=== PATIENT | male | born 1950 | race Caucasian/White ===

== ENCOUNTER 2020-12-07 06:06 | Outpatient (REF) | payer BC, SELFPAY | END 2020-12-07 06:07 | disposition home or self-care (01) | LOC: HO.LAB 06:06 | PROVIDERS: PCP Internal Medicine; Visit Provider Internal Medicine | DX: Z20.822 Contact with and (suspected) exposure to COVID-19 (principal) | CPT/HCPCS: 36415; C9803; U0003 ==

== ENCOUNTER 2020-12-16 10:53 | Outpatient (REF) | payer BC, SELFPAY | END 2020-12-16 10:54 | disposition home or self-care (01) | LOC: HO.LAB 10:53 | PROVIDERS: Visit Provider Internal Medicine | DX: Z20.822 Contact with and (suspected) exposure to COVID-19 (principal) | CPT/HCPCS: 36415; C9803; U0003; U0005 ==

== ENCOUNTER 2021-05-04 12:37 | Emergency (ER) | payer BC, SELFPAY ==
--- NOTE | 2021-05-04 | ECG_ITS ---
Test Reason : CHEST PAIN Blood Pressure : / mmHG Vent. Rate : 058 BPM Atrial Rate : 058 BPM P-R Int : 148 ms QRS Dur : 082 ms QT Int : 398 ms P-R-T Axes : 057 005 037 degrees QTc Int : 390 ms Sinus bradycardia Otherwise normal ECG When compared with ECG of 07-NOV-2008 14:59, No significant change was found Referred By: Asya Lubin Electronically Signed By:Ishan Reid
--- NOTE | ~2021-05-04 | XR_ITS ---
EXAMINATION: XR CHEST CLINICAL INFORMATION: Chest pain COMPARISON: None TECHNIQUE: Portable upright AP view of the chest was obtained. FINDINGS: The lungs are clear. The vascularity is normal. There is no pneumothorax, pleural reaction, airspace opacity, or effusion. The heart is normal in size. The hilar and mediastinal contours are normal. There are mild multilevel degenerative changes thoracic spine. XR/XR chest 1V IMPRESSION: Unremarkable examination.
[2021-05-04 12:43] VITALS: BP 137/79; BP 138/79; PULSE 65; PULSE 72; RESP 19; TEMP 37.1; O2SAT 100; O2SAT 98; BMI 22.7
[2021-05-04 13:44] LABS: MANUAL DIFF FLAG NO
[2021-05-04 13:45] LABS: Basophils Percent Auto 0.4 % (0-2); Eosinophils Absolute Auto 0.4 X10*3/uL (0.0-0.4); Eosinophils Percent Auto 6.8 % (0-4); Hemoglobin 12.4 g/dl (14.0-18.0); Imm Gran Abs Auto 0.01 X10*3/uL (0.00-0.03); Imm Gran Pct Auto 0.2 % (0.0-0.4); Lymphocytes Absolute Auto 1.4 X10*3/uL (1.2-4.9); Lymphocytes Percent Auto 24.7 % (20-40); Mean Corpuscular HGB Conc 33.5 g/dl (31.0-36.0); Mean Corpuscular Hemoglobin 30.7 pg (27.0-33.0); Mean Corpuscular Volume 91.6 fL (80-98); Mean Platelet Volume 9.2 fL (9.4-12.4); Monocytes Absolute Auto 0.5 X10*3/uL (0.1-1.2); Monocytes Percent Auto 8.9 % (2-11); Neutrophils Absolute Auto 3.3 X10*3/uL (2.0-8.3); Platelet Count 227 X10*3/uL (160-400); Red Blood Count 4.04 X10*6/uL (4.60-5.80); Red Cell Distribution Width 13.1 % (11.0-16.0); White Blood Count 5.6 X10*3/uL (4.8-10.8)
[2021-05-04 13:55] LABS: INTERNATIONAL NORM RATIO 1.1 (0.9-1.1); Prothrombin Time 12.9 SEC (10.8-13.0)
[2021-05-04 13:57] LABS: Partial Thromboplastin Time 31.1 SEC (24.1-38.0)
--- NOTE | 2021-05-04 14:07 | ED_ITS ---
HPI - Chest Pain General Chief Complaint: Chest Pain <AJ Bishop Last Filed: 05/04/21 17:29> Stated Complaint: CHEST PAIN <AJ Bishop Last Filed: 05/04/21 17:29> Time Seen by Provider: 05/04/21 13:20 <AJ Bishop Last Filed: 05/04/21 17:29> Source: patient and EMS <AJ Bishop Last Filed: 05/04/21 17:29> Mode of arrival: EMS <AJ Bishop Last Filed: 05/04/21 17:29> History of Present Illness HPI narrative: 70-year-old male with no significant PMHx presenting to the ED complaining of episode of sharp left-sided chest pain that woke him up from sleep last night around 2-3AM lasting a few seconds, and then another episode around 12 noon lasting about 5 minutes with radiation down left arm. Denies chest pain at present. Denies SOB, numbness, tingling, LE edema, cough, fever, nausea/vo miting, abdominal pain. Patient reports cigarette smoking about 1 pack every other day <AJ Bishop Last Filed: 05/04/21 17:29> MD complaint: chest pain <AJ Bishop Last Filed: 05/04/21 17:29> Related Data Allergies/Adverse Reactions: Allergies Allergy/AdvReac Type Severity Reaction Status Date / Time No Known Allergies Allergy Unverified 07/29/20 15:38 <AJ Bishop Last Filed: 05/04/21 17:29> Review of Systems Review of Systems: Constitutional: o Fever, No Chills, No Fatigue, No Malaise Cardiovascular: + Chest Pain, No SOB, No Edema, No Palpitations Respiratory: No Cough, No Dyspnea Gastrointestinal: No Nausea, No Abdominal pain Genitourinary: No Dysuria, No Urinary Frequency, No Hematuria Musculoskeletal: No joint pain, No Myalgias, No Joint Swelling Skin: No Skin Lesions, No rash Neuro: No Weakness, No Numbness, No Paresthesias, No Dizziness, No Headache <AJ Bishop Last Filed: 05/04/21 17:29> Yes all other systems are reviewed and are negative <AJ Bishop Last Filed: 05/04/21 17:29> [facility] Past Medical History Attestation statement: The following information was validated with the patient. <AJ Bishop - Last Filed: 05/04/21 17:29> Medical History: Medical History (Updated 05/05/21 @ 00:01 by Bhavana Brown) No known health problems <AJ Bishop - Last Filed: 05/04/21 17:29> Social History Social History: Social History Patient Tobacco Use Status: Current everyday Tobacco user Use of substances other than those prescribed or required for medical reasons: No Advance Directives: No Advance Directives Information Provided: Yes <AJ Bishop - Last Filed: 05/04/21 17:29> Physical Exam Vital Signs: Vital Signs: Last Vital Signs Temp 98.9 F 05/04/21 16:10 Pulse 55 05/04/21 16:10 Resp 11 L 05/04/21 16:10 BP 124/69 05/04/21 16:10 Pulse Ox 100 05/04/21 16:10 Body Mass Index 22.7 <AJ Bishop - Last Filed: 05/04/21 17:29> Vital Signs: Last Vital Signs Temp 98.9 F 05/04/21 16:10 Pulse 55 05/04/21 16:10 Resp 11 L 05/04/21 16:10 BP 124/69 05/04/21 16:10 Pulse Ox 100 05/04/21 16:10 Body Mass Index 22.7 <Tyler Nichols MD - Last Filed: 06/06/21 20:32> Const: General: cooperative, healthy appearing and no acute distress <AJ Bishop - Last Filed: 05/04/21 17:29> Orientation/consciousness: patient oriented x3 <AJ Bishop - Last Filed: 05/04/21 17:29> Limitations: no limitations <AJ Bishop - Last Filed: 05/04/21 17:29> HENMT: Head: Yes normal to inspection <AJ Bishop - Last Filed: 05/04/21 17:29> Ears: hearing grossly normal bilaterally <AJ Bishop - Last Filed: 05/04/21 17:29> General nose exam: Normal external nose present <Asya Amee ID - Last Filed: 05/04/21 17:29> Face and sinus: Yes normal facial exam <Asyaroel Lubin PA - Last Filed: 05/04/21 17:29> Eyes: General: appearance normal, both eyes and all related structures <Asya Amee PA - Last Filed: 05/04/21 17:29> EOM: EOMs intact bilaterally <Asyaroel Lubin ID - Last Filed: 05/04/21 17:29> Neck: Neck: Yes normal visual inspection and Yes no meningeal signs <Asyaroel Lubin ID - Last Filed: 05/04/21 17:29> Resp: Effort & Inspection: normal respiratory effort <Asyaroel Lubin ID - Last Filed: 05/04/21 17:29> Auscultation: clear to auscultation bilaterally, no rales and no wheezes <Asyaroel Lubin ID - Last Filed: 05/04/21 17:29> Cardio: Rate: regular rate <Asya Lubin ID - Last Filed: 05/04/21 17:29> Heart sounds: S1 normal heart sound present and S2 normal heart sound present <Asyaroel Lubin ID - Last Filed: 05/04/21 17:29> GI: Inspection: Yes normal to inspection <Asya Lubin ID - Last Filed: 05/04/21 17:29> Palpation (GI): Soft to palpation, nontender, no guarding and not rigid <Asya Lubin ID - Last Filed: 05/04/21 17:29> Skin: Rashes: no rashes <Asya Lubin ID - Last Filed: 05/04/21 17:29> Wounds: no wounds <Asya Lubin ID - Last Filed: 05/04/21 17:29> Neuro: General: patient oriented x3 and no meningeal signs <Asya Lubin ID - Last Filed: 05/04/21 17:29> Extrem: General: Yes normal to inspection, Yes no pedal edema and Yes no calf tenderness <Asya Lubin PA - Last Filed: 05/04/21 17:29> Course Course Course Narrative: -no leukocytosis, H&H stable, initial troponin 3.6 > will obtain 3 hour repeat XR chest 1V IMPRESSION: Unremarkable examination. -1727--repeat troponin without 50% increase, [place] unlikely <AJ Bishop ast Filed: 05/04/21 17:29> I have reviewed the chart <Tyler Nichols MD - Last Filed: 06/06/21 20:32> MDM - Chest Pain MDM Narrative Medical decision making narrative: 70-year-old male with no significant PMHx presenting to the ED complaining of episode of sharp left-sided chest pain that woke him up from sleep last night around 2-3AM lasting a few seconds, and then another episode around 12 noon lasting about 5 minutes with radiation down left arm. On exam VSS, NAD/well- appearing, physical exam as above. Asymptomatic at present. Concern for ACS. Symptoms atypical for PE or pneumonia. Low concern for CHF. Plan: EKG, labs including troponin x2, CXR, reassess <AJ Bishop - Last Filed: 05/04/21 17:29> Medical Records Data Attestation: I reviewed the patient's medical records. <AJ Bishop - Last Filed: 05/04/21 17:29> Lab Data Attestation: I reviewed the patient's lab results. <AJ Bishop - Last Filed: 05/04/21 17:29> Result diagrams: : 05/04/21 13:35 05/04/21 13:35 <AJ Bishop - Last Filed: 05/04/21 17:29> Labs: Lab Results 05/04/21 05/04/21 05/04/21 Range/Units 13:35 13:35 13:35 WBC 5.6 (4.8-10.8) X10*3/uL RBC 4.04 L (4.60-5.80) X10*6/uL Hgb 12.4 L (14.0-18.0) g/dl Hct 37.0 L (42-52) % MCV 91.6 (80-98) fL MCH 30.7 (27.0-33.0) pg MCHC 33.5 (31.0-36.0) g/dl RDW 13.1 (11.0-16.0) % Plt Count 227 (160-400) X10*3/uL MPV 9.2 L (9.4-12.4) fL Immature Gran % (Auto) 0.2 (0.0-0.4) % Neut % (Auto) 59.0 (45-73) % Lymph % (Auto) 24.7 (20-40) % [place] % (Auto) 8.9 (2-11) % Eos % (Auto) 6.8 H (0-4) % Baso % (Auto) 0.4 (0-2) % Lymph # (Auto) 1.4 (1.2-4.9) X10*3/uL [place] # (Auto) 0.5 (0.1-1.2) X10*3/uL Eos # (Auto) 0.4 (0.0-0.4) X10*3/uL Baso # (Auto) 0.0 (0.0-0.2) X10*3/uL Abs Immat Gran (auto) 0.01 (0.00-0.03) X10*3/uL Absolute Neuts (auto) 3.3 (2.0-8.3) X10*3/uL Absolute Nucleated RBC 0.000 (0.0-0.012) X10*3/uL Nucleated RBC % (auto) 0.0 (0.0-0.2) /100WBC PT 12.9 (10.8-13.0) SEC INR 1.1 (0.9-1.1) APTT 31.1 (24.1-38.0) SEC Sodium 141 (135-145) mmol/L Potassium 4.3 (3.3-5.1) mmol/L Chloride 107 (96-108) mmol/L Carbon Dioxide 31 H (22-29) mmol/L Anion Gap 7 L (12-20) BUN 12 (9-16) mg/dL Creatinine 0.80 (0.5-1.4) mg/dL Estim Creat Clear Calc 82.2 Estimated GFR > 60 Random Glucose 89 (60-115) mg/dL Calcium 9.4 (8.4-10.2) mg/dL Magnesium 1.8 (1.6-2.6) mg/dL Total Bilirubin 0.4 (0.0-1.0) mg/dL Direct Bilirubin 0.2 (0.0-0.5) mg/dL AST 15 (5-37) U/L ALT 7 (0-40) U/L Alkaline Phosphatase 63 (39-117) U/L Troponin I High Sens (<3.5-35.0) ng/L B-Natriuretic Peptide (<100) pg/mL Total Protein 6.8 (6.5-8.0) g/dL Albumin 4.1 (3.5-5.0) g/dL 05/04/21 05/04/21 05/04/21 Range/Units 13:35 13:35 16:28 WBC (4.8-10.8) X10*3/uL RBC (4.60-5.80) X10*6/uL Hgb (14.0-18.0) g/dl Hct (42-52) % MCV (80-98) fL MCH (27.0-33.0) pg MCHC (31.0-36.0) g/dl RDW (11.0-16.0) % Plt Count (160-400) X10*3/uL MPV (9.4-12.4) fL Immature Gran % (Auto) (0.0-0.4) % Neut % (Auto) (45-73) % Lymph % (Auto) (20-40) % [place] % (Auto) (2-11) % Eos % (Auto) (0-4) % Baso % (Auto) (0-2) % Lymph # (Auto) (1.2-4.9) X10*3/uL [place] # (Auto) (0.1-1.2) X10*3/uL Eos # (Auto) (0.0-0.4) X10*3/uL Baso # (Auto) (0.0-0.2) X10*3/uL Abs Immat Gran (auto) (0.00-0.03) X10*3/uL Absolute Neuts (auto) (2.0-8.3) X10*3/uL Absolute Nucleated RBC (0.0-0.012) X10*3/uL Nucleated RBC % (auto) (0.0-0.2) /100WBC PT (10.8-13.0) SEC INR (0.9-1.1) APTT (24.1-38.0) SEC Sodium (135-145) mmol/L Potassium (3.3-5.1) mmol/L Chloride (96-108) mmol/L Carbon Dioxide (22-29) mmol/L Anion Gap (12-20) BUN (9-16) mg/dL Creatinine (0.5-1.4) mg/dL Estim Creat Clear Calc Estimated GFR Random Glucose (60-115) mg/dL Calcium (8.4-10.2) mg/dL Magnesium (1.6-2.6) mg/dL Total Bilirubin (0.0-1.0) mg/dL Direct Bilirubin (0.0-0.5) mg/dL AST (5-37) U/L ALT (0-40) U/L Alkaline Phosphatase (39-117) U/L Troponin I High Sens 3.6 4.4 (<3.5-35.0) ng/L B-Natriuretic Peptide 46 (<100) pg/mL Total Protein (6.5-8.0) g/dL Albumin (3.5-5.0) g/dL <AJ Bishop - Last Filed: 05/04/21 17:29> Lab Results 05/04/21 05/04/21 05/04/21 Range/Units 13:35 13:35 13:35 WBC 5.6 (4.8-10.8) X10*3/uL RBC 4.04 L (4.60-5.80) X10*6/uL Hgb 12.4 L (14.0-18.0) g/dl Hct 37.0 L (42-52) % MCV 91.6 (80-98) fL MCH 30.7 (27.0-33.0) pg MCHC 33.5 (31.0-36.0) g/dl RDW 13.1 (11.0-16.0) % Plt Count 227 (160-400) X10*3/uL MPV 9.2 L (9.4-12.4) fL Immature Gran % (Auto) 0.2 (0.0-0.4) % Neut % (Auto) 59.0 (45-73) % Lymph % (Auto) 24.7 (20-40) % [place] % (Auto) 8.9 (2-11) % Eos % (Auto) 6.8 H (0-4) % Baso % (Auto) 0.4 (0-2) % Lymph # (Auto) 1.4 (1.2-4.9) X10*3/uL [place] # (Auto) 0.5 (0.1-1.2) X10*3/uL Eos # (Auto) 0.4 (0.0-0.4) X10*3/uL Baso # (Auto) 0.0 (0.0-0.2) X10*3/uL Abs Immat Gran (auto) 0.01 (0.00-0.03) X10*3/uL Absolute Neuts (auto) 3.3 (2.0-8.3) X10*3/uL Absolute Nucleated RBC 0.000 (0.0-0.012) X10*3/uL Nucleated RBC % (auto) 0.0 (0.0-0.2) /100WBC PT 12.9 (10.8-13.0) SEC INR 1.1 (0.9-1.1) APTT 31.1 (24.1-38.0) SEC Sodium 141 (135-145) mmol/L Potassium 4.3 (3.3-5.1) mmol/L Chloride 107 (96-108) mmol/L Carbon Dioxide 31 H (22-29) mmol/L Anion Gap 7 L (12-20) BUN 12 (9-16) mg/dL Creatinine 0.80 (0.5-1.4) mg/dL Estim Creat Clear Calc 82.2 Estimated GFR > 60 Random Glucose 89 (60-115) mg/dL Calcium 9.4 (8.4-10.2) mg/dL Magnesium 1.8 (1.6-2.6) mg/dL Total Bilirubin 0.4 (0.0-1.0) mg/dL Direct Bilirubin 0.2 (0.0-0.5) mg/dL AST 15 (5-37) U/L ALT 7 (0-40) U/L Alkaline Phosphatase 63 (39-117) U/L Troponin I High Sens (<3.5-35.0) ng/L B-Natriuretic Peptide (<100) pg/mL Total Protein 6.8 (6.5-8.0) g/dL Albumin 4.1 (3.5-5.0) g/dL 05/04/21 05/04/21 05/04/21 Range/Units 13:35 13:35 16:28 WBC (4.8-10.8) X10*3/uL RBC (4.60-5.80) X10*6/uL Hgb (14.0-18.0) g/dl Hct (42-52) % MCV (80-98) fL MCH (27.0-33.0) pg MCHC (31.0-36.0) g/dl RDW (11.0-16.0) % Plt Count (160-400) X10*3/uL MPV (9.4-12.4) fL Immature Gran % (Auto) (0.0-0.4) % Neut % (Auto) (45-73) % Lymph % (Auto) (20-40) % [place] % (Auto) (2-11) % Eos % (Auto) (0-4) % Baso % (Auto) (0-2) % Lymph # (Auto) (1.2-4.9) X10*3/uL [place] # (Auto) (0.1-1.2) X10*3/uL Eos # (Auto) (0.0-0.4) X10*3/uL Baso # (Auto) (0.0-0.2) X10*3/uL Abs Immat Gran (auto) (0.00-0.03) X10*3/uL Absolute Neuts (auto) (2.0-8.3) X10*3/uL Absolute Nucleated RBC (0.0-0.012) X10*3/uL Nucleated RBC % (auto) (0.0-0.2) /100WBC PT (10.8-13.0) SEC INR (0.9-1.1) APTT (24.1-38.0) SEC Sodium (135-145) mmol/L Potassium (3.3-5.1) mmol/L Chloride (96-108) mmol/L Carbon Dioxide (22-29) mmol/L Anion Gap (12-20) BUN (9-16) mg/dL Creatinine (0.5-1.4) mg/dL Estim Creat Clear Calc Estimated GFR Random Glucose (60-115) mg/dL Calcium (8.4-10.2) mg/dL Magnesium (1.6-2.6) mg/dL Total Bilirubin (0.0-1.0) mg/dL Direct Bilirubin (0.0-0.5) mg/dL AST (5-37) U/L ALT (0-40) U/L Alkaline Phosphatase (39-117) U/L Troponin I High Sens 3.6 4.4 (<3.5-35.0) ng/L B-Natriuretic Peptide 46 (<100) pg/mL Total Protein (6.5-8.0) g/dL Albumin (3.5-5.0) g/dL <Tyler Nichols MD - Last Filed: 06/06/21 20:32> ECG Data ECG #1: Attestation: I personally reviewed and interpreted this ECG as follows: <AJ Bishop - Last Filed: 05/04/21 17:29> ECG interpretation date: 05/04/21 <AJ Bishop - Last Filed: 05/04/21 17:29> Prior ECG tracings: available for review <AJ Bishop - Last Filed: 05/04/21 17:29> Interpretation: EKG sinus bradycardia with a rate of 58. Nonischemic-no STEMI. 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
[2021-05-04 14:14] LABS: B Type Natriuretic Peptide 46 pg/mL (<100); Troponin-I High Sensitivity 3.6 ng/L (<3.5-35.0)
[2021-05-04 14:17] LABS: Alanine Aminotransferase 7 U/L (0-40); Albumin Level 4.1 g/dL (3.5-5.0); Alkaline Phosphatase 63 U/L (39-117); Anion Gap 7 (12-20); Aspartate Amino Transferase 15 U/L (5-37); Bilirubin Direct 0.2 mg/dL (0.0-0.5); Bilirubin Total 0.4 mg/dL (0.0-1.0); Blood Urea Nitrogen 12 mg/dL (9-16); Calcium 9.4 mg/dL (8.4-10.2); Carbon Dioxide 31 mmol/L (22-29); Chloride 107 mmol/L (96-108); Creatinine Clr Calc Pharmacy 82.2; Estimated Glomerular Filt Rate > 60; Glucose Random 89 mg/dL (60-115); Magnesium 1.8 mg/dL (1.6-2.6); Potassium 4.3 mmol/L (3.3-5.1); Sodium 141 mmol/L (135-145); Total Protein 6.8 g/dL (6.5-8.0)
[2021-05-04 14:44] VITALS: BP 139/75; PULSE 54; RESP 18
[2021-05-04 16:10] VITALS: BP 124/69; PULSE 55; RESP 11; TEMP 37.2; O2SAT 100
[2021-05-04 17:03] LABS: Troponin-I High Sensitivity 4.4 ng/L (<3.5-35.0)
== END 2021-05-04 17:52 | disposition home or self-care (01) ==
PROVIDERS: Physician Assistant; Emergency Provider Emergency Medicine; PCP Internal Medicine
DX: R07.9 Chest pain, unspecified (principal); F17.210 Nicotine dependence, cigarettes, uncomplicated
CPT/HCPCS: 36415; 71045; 80048; 80076; 83735; 83880; 84484; 85025; 85610; 85730; 93005; 99285

== ENCOUNTER 2023-04-12 21:42 | Emergency (ER) | payer MEDICARE, SELFPAY ==
[2023-04-12 21:47] VITALS: BP 108/59; PULSE 78; RESP 12; TEMP 36.2; O2SAT 95; BMI 20.4
[2023-04-12] MEDS: Naloxone HCl Nasal 4 MG SPRAY NOSTRILALT ×3 (21:51→22:19)
--- NOTE | 2023-04-12 22:00 | ECG_ITS ---
Test Reason : SYNCOPY Blood Pressure : / mmHG Vent. Rate : 080 BPM Atrial Rate : 080 BPM P-R Int : 162 ms QRS Dur : 084 ms QT Int : 378 ms P-R-T Axes : 060 -15 029 degrees QTc Int : 435 ms Normal sinus rhythm Minimal voltage criteria for LVH, may be normal variant ( R in aVL ) Borderline ECG When compared with ECG of 04-MAY-2021 13:32, No significant change was found Referred By: Generic ED Physician Electronically Signed By:JIMY HENDRICKS MD
--- NOTE | 2023-04-12 22:07 | ED.GENADULT ---
HPI - General Adult General Chief complaint: Syncope Stated complaint: dizziness Time Seen by Provider: 04/12/23 22:07 Source: patient and family Mode of arrival: ambulatory Limitations: no limitations History of Present Illness HPI narrative: 72-year-old male brought in by his family for mental status change, patient other history of drug abuse according to the family he did not use for many years, patient went out to smoke cigarettes then he said that he feels like he is high, patient declined using any recreational drugs, however in patients is responding to Narcan at that triage No SI, no HI, no AVH. Patient was just retired yesterday and feels slightly depressed. No headache, no blurry vision, no photophobia, no neck stiffness, no CP, no abdominal pain, no nausea, no vomiting, no diarrhea, no dysuria. Related Data Allergies Allergy/AdvReac Type Severity Reaction Status Date / Time No Known Allergies Allergy Verified 04/12/23 21:51 Review of Systems Review of Systems: All other systems are reviewed and are negative Constitutional: Reports as per HPI and Reports no additional constitutional complaints Eyes: Reports as per HPI and Reports no additional eye complaints Reports system reviewed and no additional complaints, except as documented Cardiovascular: Reports as per HPI and Reports no additional cardiovascular complaints Respiratory: Reports as per HPI and Reports no additional respiratory complaints Gastrointestinal: Reports as per HPI and Reports no additional gastrointestinal complaints Genitourinary: Reports no additional female genitourinary complaints Musculoskeletal: Reports no additional musculoskeletal complaints Skin/Breast: Reports system reviewed and no additional complaints, except as docu Psychiatric: Reports no additional psychiatric complaints Endocrine: Reports no additional endocrine complaints Hematologic/Lymphatic: Reports no additional hematologic/lymphatic complaints Allergic/Immunologic: Reports no additional allergic/immunologic complaints Reports system reviewed and no additional complaints, except as documented and Reports Abnormal speech present REPLACED BY [facility] Past Medical History Medical History No known health problems Social History Social History Patient Tobacco Use Status: Current everyday Tobacco user Advance Directives: No Advance Directives Information Provided: No Physical Exam ED Vital Signs: Vital Signs - 24 hr 04/12/23 21:47 04/12/23 22:17 Temperature 97.2 F Pulse Rate 78 77 Respiratory Rate 12 Blood Pressure 108/59 L 109/72 Pulse Oximetry 95 99 Oxygen Delivery Method Room Air Nasal Cannula Oxygen Flow Rate 2 BMI result Body Mass Index 20.4 Vital signs have been reviewed as appeared to be correct. Blood pressure normal. Heart rate normal. Respiration rate normal. Temperature normal. Oxygen saturation normal. Appearance: Alert. Oriented X3. No acute distress. Head: Normal external exam. Normocephalic. Atraumatic. No Nielsen signs noted. No raccoon eyes noted Eyes: PERRLA. EOMI. Conjunctiva and sclera normal. Eyelids normal. ENT: TM's Normal. Pharynx normal. Uvula midline. Moist mucous membranes. No trismus noted. No drooling noted. No muffled voice noted. Neck: Normal inspection. Neck supple. FROM. No adenopathy. Thyroid Normal. No meningeal signs. No neck mass noted. CVS: Normal heart rate and rhythm. Heart sound normal. No murmurs noted. Pulses normal throughout. Respiratory: No respiratory distress. Painless inspiration. Breath sounds normal. No wheezes/rales/rhonchi noted. Chest nontender. No accessory muscle usage noted or decreased air movement noted. Abdomen: Soft and nontender. Bowel sounds normal in all 4 quadrants. No distention noted. No organomegaly noted. No visible injury noted. Back: No CVA tenderness. Full range of motion noted. Skin: Skin warm and dry. Normal skin color. Normal skin turgor. No rashes/lesions/lacerations noted. Extremities: No lower extremity edema. Extremities exhibit normal range of motion. Extremities nontender. Neuro: Oriented X 3. Cranial nerve exam: II-XII are grossly intact No motor deficit. No sensory deficit. Reflexes normal. Course Course Course Narrative: 72-year-old male came in with generalized weakness that is nonspecific, patient while in the emergency room was complaining of restless legs bilaterally, patient feels better after was given 1 mg of Ativan, labs are unremarkable. Will discharge home to follow-up with PCP. Medications Administered Discontinued Medications Generic Name Dose Route Start Last Admin Trade Name Freq PRN Reason Stop Dose Admin Diphenhydramine HCl 50 mg 04/12/23 23:34 04/12/23 23:49 Diphenhydramine Hcl 25 Mg Capsule PO 04/12/23 23:35 50 mg ONCE ONE Administration Lorazepam 2 mg 04/13/23 00:45 04/13/23 00:55 Lorazepam 1 Mg Tablet PO 04/13/23 00:46 2 mg ONCE ONE Administration Naloxone HCl 4 mg 04/12/23 21:58 04/12/23 21:51 Naloxone Hcl Nasal 4 Mg [place] NOSTRILALT 04/12/23 21:59 4 mg ONCE ONE Administration Naloxone HCl 4 mg 04/12/23 21:58 04/12/23 21:58 Naloxone Hcl Nasal 4 Mg [place] NOSTRILALT 04/12/23 21:59 4 mg ONCE ONE Administration Naloxone HCl 4 mg 04/12/23 22:19 04/12/23 22:19 Naloxone Hcl Nasal 4 Mg [place] NOSTRILALT 04/12/23 22:20 4 mg ONCE ONE Administration Medical Decision Making Differential Diagnosis Differential Diagnoses: The differential diagnosis associated with the presentation includes (Depression, anxiety, SI, HI, electrolyte abnormalities, severe anemia, intoxication.) Admission/Observation Consideration of admission/observation: Escalation of care including admission/observation considered Lab Data MDM Lab Attestation statement: I reviewed the patient's lab results. 04/12/23 22:04 04/12/23 22:04 Labs: Lab Results 04/12/23 04/12/23 04/12/23 Range/Units 22:04 22:04 22:04 WBC 8.2 (4.8-10.8) X10*3/uL RBC 4.17 L (4.60-5.80) X10*6/uL Hgb 12.6 L (14.0-18.0) g/dl Hct 36.6 L (42.0-52.0) % MCV 87.8 (80.0-98.0) fL MCH 30.2 (27.0-33.0) pg MCHC 34.4 (31.0-36.0) g/dl RDW 12.9 (11.0-16.0) % Plt Count 308 (160-400) X10*3/uL MPV 9.2 L (9.4-12.4) fL Immature Gran % (Auto) 0.2 (0.0-0.4) % Neut % (Auto) 52.2 (45-73) % Lymph % (Auto) 33.5 (20-40) % O'Brien % (Auto) 8.3 (2-11) % Eos % (Auto) 5.4 H (0-4) % Baso % (Auto) 0.4 (0-2) % Lymph # (Auto) 2.8 (1.2-4.9) X10*3/uL O'Brien # (Auto) 0.7 (0.1-1.2) X10*3/uL Eos # (Auto) 0.4 (0.0-0.4) X10*3/uL Baso # (Auto) 0.0 (0.0-0.2) X10*3/uL Abs Immat Gran (auto) 0.02 (0.00-0.03) X10*3/uL Absolute Neuts (auto) 4.3 (2.0-8.3) x10*3/uL Absolute Nucleated RBC 0.000 (0.0-0.012) X10*3/uL Nucleated RBC % (auto) 0.0 (0.0-0.2) /100WBC Sodium 139 (135-145) mmol/L Potassium 3.7 (3.3-5.1) mmol/L Chloride 107 (96-108) mmol/L Carbon Dioxide 23 (22-29) mmol/L Anion Gap 13 (12-20) BUN 13 (9-16) mg/dL Creatinine 0.83 (0.5-1.4) mg/dL Estim Creat Clear Calc 75.4 Estimated GFR > 60 Random Glucose 138 H (60-115) mg/dL Calcium 9.1 (8.4-10.2) mg/dL Total Bilirubin 0.3 (0.0-1.0) mg/dL AST 16 (5-37) U/L ALT 9 (0-40) U/L Alkaline Phosphatase 76 (39-117) U/L Troponin I High Sens < 2.7 (<3.5-35.0) ng/L Total Protein 7.1 (6.5-8.0) g/dL Albumin 3.8 (3.5-5.0) g/dL Urine Opiates Screen (Not Detect) Urine Fentanyl Screen (Not Detect) Ur Barbiturates Screen (Not Detect) Ur Phencyclidine Scrn (Not Detect) Ur Amphetamines Screen (Not Detect) U Benzodiazepines Scrn (Not Detect) Urine Cocaine Screen (Not Detect) U Marijuana (THC) Screen (Not Detect) Ethyl Alcohol mg/dL 04/12/23 04/12/23 Range/Units 22:04 23:43 WBC (4.8-10.8) X10*3/uL RBC (4.60-5.80) X10*6/uL Hgb (14.0-18.0) g/dl Hct (42.0-52.0) % MCV (80.0-98.0) fL MCH (27.0-33.0) pg MCHC (31.0-36.0) g/dl RDW (11.0-16.0) % Plt Count (160-400) X10*3/uL MPV (9.4-12.4) fL Immature Gran % (Auto) (0.0-0.4) % Neut % (Auto) (45-73) % Lymph % (Auto) (20-40) % O'Brien % (Auto) (2-11) % Eos % (Auto) (0-4) % Baso % (Auto) (0-2) % Lymph # (Auto) (1.2-4.9) X10*3/uL O'Brien # (Auto) (0.1-1.2) X10*3/uL Eos # (Auto) (0.0-0.4) X10*3/uL Baso # (Auto) (0.0-0.2) X10*3/uL Abs Immat Gran (auto) (0.00-0.03) X10*3/uL Absolute Neuts (auto) (2.0-8.3) x10*3/uL Absolute Nucleated RBC (0.0-0.012) X10*3/uL Nucleated RBC % (auto) (0.0-0.2) /100WBC Sodium (135-145) mmol/L Potassium (3.3-5.1) mmol/L Chloride (96-108) mmol/L Carbon Dioxide (22-29) mmol/L Anion Gap (12-20) BUN (9-16) mg/dL Creatinine (0.5-1.4) mg/dL Estim Creat Clear Calc Estimated GFR Random Glucose (60-115) mg/dL Calcium (8.4-10.2) mg/dL Total Bilirubin (0.0-1.0) mg/dL AST (5-37) U/L ALT (0-40) U/L Alkaline Phosphatase (39-117) U/L Troponin I High Sens (<3.5-35.0) ng/L Total Protein (6.5-8.0) g/dL Albumin (3.5-5.0) g/dL Urine Opiates Screen Not Detected (Not Detect) Urine Fentanyl Screen Not Detected (Not Detect) Ur Barbiturates Screen Not Detected (Not Detect) Ur Phencyclidine Scrn Not Detected (Not Detect) Ur Amphetamines Screen Not Detected (Not Detect) U Benzodiazepines Scrn Not Detected (Not Detect) Urine Cocaine Screen Not Detected (Not Detect) U Marijuana (THC) Screen POSITIVE H (Not Detect) Ethyl Alcohol < 10 mg/dL Independent Interpretation I performed an independent interpretation of an: Plain X-Ray (Chest: Unremarkable examination.) Radiology Impression Discussion of test interpretation with radiology: I have reviewed the radiologist's reading. Discharge Plan Discharge Clinical Impression: Anxiety Patient Disposition: Home, Self-Care Instructions: Anxiety (ED) Referrals: Physician,Unknown J [Primary Care Provider] -
[2023-04-12 22:09] LABS: MANUAL DIFF FLAG NO
[2023-04-12 22:11] LABS: Basophils Percent Auto 0.4 % (0-2); Eosinophils Absolute Auto 0.4 X10*3/uL (0.0-0.4); Eosinophils Percent Auto 5.4 % (0-4); Hematocrit 36.6 % (42.0-52.0); Hemoglobin 12.6 g/dl (14.0-18.0); Imm Gran Abs Auto 0.02 X10*3/uL (0.00-0.03); Imm Gran Pct Auto 0.2 % (0.0-0.4); Lymphocytes Absolute Auto 2.8 X10*3/uL (1.2-4.9); Lymphocytes Percent Auto 33.5 % (20-40); Mean Corpuscular HGB Conc 34.4 g/dl (31.0-36.0); Mean Corpuscular Hemoglobin 30.2 pg (27.0-33.0); Mean Corpuscular Volume 87.8 fL (80.0-98.0); Mean Platelet Volume 9.2 fL (9.4-12.4); Monocytes Absolute Auto 0.7 X10*3/uL (0.1-1.2); Monocytes Percent Auto 8.3 % (2-11); Neutrophils Absolute Auto 4.3 x10*3/uL (2.0-8.3); Neutrophils Percent Auto 52.2 % (45-73); Platelet Count 308 X10*3/uL (160-400); Red Blood Count 4.17 X10*6/uL (4.60-5.80); Red Cell Distribution Width 12.9 % (11.0-16.0); White Blood Count 8.2 X10*3/uL (4.8-10.8)
[2023-04-12 22:17] VITALS: BP 109/72; PULSE 77; O2SAT 99
[2023-04-12 22:37] LABS: Alanine Aminotransferase 9 U/L (0-40); Albumin Level 3.8 g/dL (3.5-5.0); Alkaline Phosphatase 76 U/L (39-117); Anion Gap 13 (12-20); Aspartate Amino Transferase 16 U/L (5-37); Bilirubin Total 0.3 mg/dL (0.0-1.0); Blood Urea Nitrogen 13 mg/dL (9-16); Calcium 9.1 mg/dL (8.4-10.2); Carbon Dioxide 23 mmol/L (22-29); Chloride 107 mmol/L (96-108); Creatinine Clr Calc Pharmacy 75.4; Estimated Glomerular Filt Rate > 60; Glucose Random 138 mg/dL (60-115); Potassium 3.7 mmol/L (3.3-5.1); Sodium 139 mmol/L (135-145); Total Protein 7.1 g/dL (6.5-8.0); Troponin-I High Sensitivity < 2.7 ng/L (<3.5-35.0)
[2023-04-12 22:52] LABS: Ethanol < 10 mg/dL
[2023-04-12] MEDS: diphenhydrAMINE HCL 25 MG CAPSULE 50 MG PO (23:49)
--- NOTE | 2023-04-12 23:49 | PC.NURSE ---
administered benadryl 50 mg PO per MAR
[2023-04-13 00:02] LABS: Amphetamine Screen Urine Not Detected (Not Detect); Barbiturates, Urine Not Detected (Not Detect); Benzodiazepines Screen Urine Not Detected (Not Detect); Cannabinoid Screen Urine POSITIVE (Not Detect); Cocaine Screen Urine Not Detected (Not Detect); Fentanyl, urine Not Detected (Not Detect); Opiate Screen Urine Not Detected (Not Detect); Phencyclidine Screen Urine Not Detected (Not Detect)
[2023-04-13] MEDS: LORazepam 1 MG TABLET 2 MG PO (00:55)
--- NOTE | 2023-04-13 01:37 | PC.NURSE ---
pt a &o, no sob or chest pain, pt able to ambulate at discharge, Reviewed discharge instruction with pt, pt verbalized understanding.
== END 2023-04-13 01:46 | disposition home or self-care (01) ==
PROVIDERS: Emergency Provider Emergency Medicine
DX: F41.9 Anxiety disorder, unspecified (principal); R53.1 Weakness; G25.81 Restless legs syndrome; F17.210 Nicotine dependence, cigarettes, uncomplicated; F19.10 Other psychoactive substance abuse, uncomplicated
CPT/HCPCS: 36415; 80053; 80307; 84484; 85025; 93005; 99284

== ENCOUNTER 2025-03-07 14:28 | Emergency (ER) | payer MEDICARE, SELFPAY ==
--- NOTE | ~2025-03-07 | CT_ITS ---
CLINICAL HISTORY: abnormal CXR, palpitations, SOB CT CHEST WITHOUT CONTRAST Comparison: CR - XR CHEST 2V - 03/07/25 15:03 EDT Findings: Scattered calcific plaque in the ectatic thoracic aorta. No significant pericardial effusion. The thyroid gland appears heterogeneous. No mediastinal lymphadenopathy. Mild centrilobular emphysematous changes. No consolidation, pleural effusion or pneumothorax. Bilateral lower lobe atelectasis and/or scarring. No pulmonary mass or suspicious pulmonary nodule. No adrenal mass. Old fractures in right ribs 3-6. Thoracolumbar spondylosis with prominent multilevel endplate Schmorl's nodes. IMPRESSION: No acute or suspicious pulmonary parenchymal or pleural abnormality. This document has been electronically signed by: Leanne Ferguson DO on 03/07/2025 17:37:50
--- NOTE | ~2025-03-07 | XR_ITS ---
CLINICAL HISTORY: dyspnea 2 view chest x-ray Comparison: None Findings: The lungs are hyperaerated. No consolidation, pleural effusion or pneumothorax. Small ill-defined nodular density in the right upper lobe. Mild cardiomegaly without CHF. The aorta is uncoiled. No acute fracture. IMPRESSION: 1. Small ill-defined nodular density in the right upper lobe may be confluence artifact, inflammatory/infectious in etiology or represent a pulmonary lesion. Suggest follow-up CT chest. 2. Probable emphysematous changes. This document has been electronically signed by: Leanne Ferguson DO on 03/07/2025 16:18:57
[2025-03-07 14:41] VITALS: BP 151/77; PULSE 60; RESP 18; TEMP 36.9; O2SAT 97; BMI 21.3
--- NOTE | 2025-03-07 14:41 | ED.GENADULT ---
HPI - General Adult General Chief complaint: Dyspnea Stated complaint: diff breathing Time Seen by Provider: 03/07/25 15:21 Source: patient Mode of arrival: ambulatory Limitations: no limitations History of Present Illness ED Provider: Belgica Ayers APRN HPI narrative: 74 year-old male with PMHx of anxiety, S/P appendectomy (02/03), current tobacco use, presents to the ED today due to concerns of heart palpitations and abdominal pain. He states he has been experiencing heart palpitations and pounding heart rate for 1 week. He explains these symptoms occur at rest and are associated with his anxiety for which he is following up with his PCP for management soon. He explains he had an appendectomy at [facility] in January of 2025 and since his procedure he has been experiencing increased flatulence and constipation. He reports he has followed up with his surgeon and they put him on a bowel regimen of miralax once per day and a black pill that he cannot recall the name of, his last bowel movement was yesterday ( 03/06/25). He denies sick contacts, recent travel, fever, SOB, chest pain, diarrhea, black or bloody stool or bilious/bloody vomiting. Related Data Previous Rx's ?Medication ?Instructions ?Recorded docusate sodium 100 mg capsule 100 mg PO BID #60 caps 03/07/25 (Colace) Allergies Allergy/AdvReac Type Severity Reaction Status Date / Time No Known Allergies Allergy Verified 03/07/25 14:45 Review of Systems Review of Systems: Yes all other systems are reviewed and are negative Constitutional: Constitutional: Reports no additional constitutional complaints, Denies body ache(s), Denies chills, Denies fever(s), Denies headache(s) and Denies weakness Eyes: Eyes: Reports no additional eye complaints and Denies change in vision ENT: Reports system reviewed and no additional complaints, except as documented, Denies dizziness, Denies headache(s), Denies nasal congestion, Denies nasal discharge and Denies neck pain Cardiovascular: Cardiovascular: Reports no additional cardiovascular complaints, Denies chest pain, Denies leg edema, Reports palpitations and Denies dyspnea Respiratory: Respiratory: Reports no additional respiratory complaints, Denies cough and Denies dyspnea Gastrointestinal: Gastrointestinal: Reports no additional gastrointestinal complaints, Reports abdominal pain, Reports constipation, Reports excessive flatus, Denies diarrhea, Denies nausea and Denies vomiting Genitourinary: Genitourinary: Denies urinary incontinence Musculoskeletal: Musculoskeletal: Reports no additional musculoskeletal complaints, Denies back pain, Denies arthralgias, Denies joint swelling, Denies neck pain, Denies numbness and Denies tingling Integumentary/Breasts: Skin/Breast: Reports system reviewed and no additional complaints, except as docu and Denies rash Neurologic: Reports system reviewed and no additional complaints, except as documented, Denies dizziness, Denies headache(s), Denies numbness, Denies tingling and Denies weakness Endocrine: Endocrine: Reports palpitations PMFSH Past Medical History Attestation statement: The following information was validated with the patient. Source: old records reviewed Medical History No known health problems Social History Social History Patient Tobacco Use Status: Current everyday Tobacco user Advance Directives: No Advance Directives Information Provided: No Do you have a plan to hurt others: No Plan Physical Exam ED Vital Signs: Vital Signs - 24 hr 03/07/25 14:41 03/07/25 16:00 03/07/25 18:25 Temperature 98.4 F 98 F 97.5 F Pulse Rate 60 56 60 Respiratory Rate 18 13 17 Blood Pressure 151/77 H 170/85 H 134/74 Pulse Oximetry 97 100 99 Oxygen Delivery Method Room Air Room Air Room Air BMI result Body Mass Index 21.3 Course Course Course Narrative: RME, this is a rapid medical exam performed by Kirby Oseguera please refer to primary provider for complete H&P- 74 year old male presents for evaluation of shortness of breath. His symptoms started after having an appendectomy at the beginning of January at [facility]. Plan for labs, ekg, chest x-ray, and viral swabs Reevaluation(s) Reevaluation #1: 1630- CXR shows IMPRESSION: 1. Small ill-defined nodular density in the right upper lobe may be confluence artifact, inflammatory/infectious in etiology or represent a pulmonary lesion. Suggest follow-up CT chest. 2. Probable emphysematous changes. Will order CT chest Reevaluation #2: 1800-Ct chest shows on emphysema changes but no other acute finding. I reviewed this with the patient. Recommend he follow up outpatient with his primary care doctor. Reviewed worrisome signs and symptoms of when to return to the emergency room. Comfortable plan for discharge home Medical Decision Making Medical Decision Making [facility] Narrative: 74 year-old male with PMHx of anxiety, S/P appendectomy (02/03), current tobacco use, presents to the ED today due to concerns of heart palpitations and abdominal pain. He states he has been experiencing heart palpitations and pounding heart rate for 1 week. He explains these symptoms occur at rest and are associated with his anxiety for which he is following up with his PCP for management soon. He explains he had an appendectomy at [facility] in January of 2025 and since his procedure he has been experiencing increased flatulence and constipation. He reports he has followed up with his surgeon and they put him on a bowel regimen of miralax once per day and a black pill that he cannot recall the name of, his last bowel movement was yesterday ( 03/06/25). He denies sick contacts, recent travel, fever, SOB, chest pain, diarrhea, black or bloody stool or bilious/bloody vomiting. Patients vital signs stable, in no acute distress and is non-toxic appearing. Physical exam is within normal limits, no abdominal tenderness to palpation, bowel sounds present in all quadrants. Will obtain labs, lipase, TSH, EKG, troponin, chest x-ray, viral swabs. Differential Diagnosis Differential Diagnoses: The differential diagnosis associated with the presentation includes viral illness, pancreatitis, anxiety, ACS (less likely with symptoms for days with nonischemic EKG/flat troponin/atypical story for ACS) , infection S/P appy, SBO, PE (less likely with no hypoxia/tachypnea or clinical findings concerning for DVT), arrhythmia, Admission/Observation Consideration of admission/observation: Escalation of care including admission/observation considered Lab Data [facility] Lab Attestation statement: I reviewed the patient's lab results. 03/07/25 16:05 03/07/25 16:05 Labs: Lab Results 03/07/25 Range/Units 16:05 WBC 6.1 (4.8-10.8) X10*3/uL RBC 4.08 L (4.60-5.80) X10*6/uL Hgb 12.8 L (14.0-18.0) g/dl Hct 36.4 L (42.0-52.0) % MCV 89.2 (80.0-98.0) fL MCH 31.4 (27.0-33.0) pg MCHC 35.2 (31.0-36.0) g/dl RDW 13.2 (11.0-16.0) % Plt Count 213 D (160-400) X10*3/uL MPV 9.7 (9.4-12.4) fL Immature Gran % (Auto) 0.2 (0.0-0.4) % Neut % (Auto) 71.8 (45-73) % Lymph % (Auto) 17.0 L (20-40) % Daniels % (Auto) 8.1 (2-11) % Eos % (Auto) 2.6 (0-4) % Baso % (Auto) 0.3 (0-2) % Lymph # (Auto) 1.0 L (1.2-4.9) X10*3/uL Daniels # (Auto) 0.5 (0.1-1.2) X10*3/uL Eos # (Auto) 0.2 (0.0-0.4) X10*3/uL Baso # (Auto) 0.0 (0.0-0.2) X10*3/uL Abs Immat Gran (auto) 0.01 (0.00-0.03) X10*3/uL Absolute Neuts (auto) 4.4 (2.0-8.3) x10*3/uL Absolute Nucleated RBC 0.000 (0.0-0.012) X10*3/uL Nucleated RBC % (auto) 0.0 (0.0-0.2) /100WBC Sodium 140 (135-145) mmol/L Potassium 4.0 (3.3-5.1) mmol/L Chloride 107 (96-108) mmol/L Carbon Dioxide 29 (22-29) mmol/L Anion Gap 8 L (12-20) BUN 10 (9-16) mg/dL Creatinine 0.77 (0.5-1.4) mg/dL Estim Creat Clear Calc 75.8 Estimated GFR > 60 Random Glucose 105 (60-115) mg/dL Calcium 9.5 (8.4-10.2) mg/dL Total Bilirubin 0.6 (0.0-1.0) mg/dL AST 21 (5-37) U/L ALT 15 (0-40) U/L Alkaline Phosphatase 75 (39-117) U/L Troponin I High Sens 2.8 (<3.5-35.0) ng/L B-Natriuretic Peptide 54 (<100) pg/mL Total Protein 7.1 (6.5-8.0) g/dL Albumin 4.2 (3.5-5.0) g/dL Lipase 8 (8-78) U/L TSH 0.69 (0.32-4.0) uIU/mL Influenza Type A (PCR) NEGATIVE (Negative) Influenza Type B (PCR) NEGATIVE (Negative) RSV RNA Qual (PCR) NEGATIVE (Negative) SARS-CoV-2 RNA (RT-PCR) NEGATIVE (Negative) Independent Interpretation I performed an independent interpretation of an: EKG, Plain X-Ray and CT Scan Interpretation: I independently reviewed the x-ray/CT A/P and agree with the rad report I independently reviewed the EKG which shows SB with rate 50, normal pr, normal qrs, normal qt Radiology Impression Discussion of test interpretation with radiology: I have reviewed the radiologist's reading. Radiologist Impression: [place] [id number] XRay Report Signed Patient: Corona Melton MR#: [id number] : 1950 Acct:[id number] Age/Sex: 74 / M ADM Date: 03/07/25 Loc: .ED Attending Dr: Ordering Physician: Dev Oseguera Date of Service: 03/07/25 Procedure(s): XR chest 2V Accession Number(s): [id number] cc: JOSE ARMANDO MAGALLANES MD; Dev Oseguera~ CLINICAL HISTORY: dyspnea 2 view chest x-ray Comparison: None Findings: The lungs are hyperaerated. No consolidation, pleural effusion or pneumothorax. Small ill-defined nodular density in the right upper lobe. Mild cardiomegaly without CHF. The aorta is uncoiled. No acute fracture. IMPRESSION: 1. Small ill-defined nodular density in the right upper lobe may be confluence artifact, inflammatory/infectious in etiology or represent a pulmonary lesion. Suggest follow-up CT chest. 2. Probable emphysematous changes. [address] [id number] [address] Scan Report Signed Patient: Corona Melton MR#: [id number] : 1950 Acct:[id number] Age/Sex: 74 / M ADM Date: 03/07/25 Loc: HO.ED Attending Dr: Ordering Physician: Belgica Ayers NP Date of Service: 03/07/25 Procedure(s): CT chest wo IV con Accession Number(s): [id number] cc: JOSE ARMANDO MAGALLANES MD; Belgica Ayers NP~ Report Number: [id number]: Total DLP = 217.00 mGy-cm CLINICAL HISTORY: abnormal CXR, palpitations, SOB CT CHEST WITHOUT CONTRAST Comparison: CR - XR CHEST 2V - 03/07/25 15:03 EDT Findings: Scattered calcific plaque in the ectatic thoracic aorta. No significant pericardial effusion. The thyroid gland appears heterogeneous. No mediastinal lymphadenopathy. Mild centrilobular emphysematous changes. No consolidation, pleural effusion or pneumothorax. Bilateral lower lobe atelectasis and/or scarring. No pulmonary mass or suspicious pulmonary nodule. No adrenal mass. Old fractures in right ribs 3-6. Thoracolumbar spondylosis with prominent multilevel endplate Schmorl's nodes. IMPRESSION: No acute or suspicious pulmonary parenchymal or pleural abnormality. External Record Review External record reviewed: Inpatient record and Office record Discharge Plan Discharge Clinical Impression: Palpitations, Anxiety, Constipation Patient Disposition: Home, Self-Care Instructions: Heart Palpitations (ED), Constipation (ED), Anxiety (ED) Additional Instructions: Your blood work, EKG and CAT scan are reassuring Please follow-up with your primary care doctor in regards to your anxiety Take MiraLax twice daily. Add Colace. Increase fluid, fiber in the diet Follow-up with your outpatient surgeon as new Prescriptions: New docusate sodium [Colace] 100 mg capsule 100 mg PO BID Qty: 60 0RF Discharge Date/Time: 03/07/25 18:30 Print Language: Albanian
--- NOTE | 2025-03-07 14:42 | ECG_ITS ---
Test Reason : chest pain Blood Pressure : */* mmHG Vent. Rate : 50 BPM Atrial Rate : 50 BPM P-R Int : 148 ms QRS Dur : 84 ms QT Int : 422 ms P-R-T Axes : 43 2 48 degrees QTcB Int : 384 ms Sinus bradycardia Otherwise normal ECG When compared with ECG of 12-Apr-2023 21:56, Vent. rate has decreased by 30 bpm QT has shortened Referred By: Dev Oseguera Electronically Signed By: RADHA LUCERO
[2025-03-07 16:00] VITALS: BP 170/85; PULSE 56; RESP 13; TEMP 36.6; O2SAT 100
[2025-03-07 16:12] LABS: MANUAL DIFF FLAG NO
[2025-03-07 16:13] LABS: Basophils Percent Auto 0.3 % (0-2); Eosinophils Absolute Auto 0.2 X10*3/uL (0.0-0.4); Eosinophils Percent Auto 2.6 % (0-4); Hematocrit 36.4 % (42.0-52.0); Hemoglobin 12.8 g/dl (14.0-18.0); Imm Gran Abs Auto 0.01 X10*3/uL (0.00-0.03); Imm Gran Pct Auto 0.2 % (0.0-0.4); Mean Corpuscular HGB Conc 35.2 g/dl (31.0-36.0); Mean Corpuscular Hemoglobin 31.4 pg (27.0-33.0); Mean Corpuscular Volume 89.2 fL (80.0-98.0); Mean Platelet Volume 9.7 fL (9.4-12.4); Monocytes Absolute Auto 0.5 X10*3/uL (0.1-1.2); Monocytes Percent Auto 8.1 % (2-11); Neutrophils Absolute Auto 4.4 x10*3/uL (2.0-8.3); Neutrophils Percent Auto 71.8 % (45-73); Platelet Count 213 X10*3/uL (160-400); Red Blood Count 4.08 X10*6/uL (4.60-5.80); Red Cell Distribution Width 13.2 % (11.0-16.0); White Blood Count 6.1 X10*3/uL (4.8-10.8)
[2025-03-07 16:29] LABS: Alanine Aminotransferase 15 U/L (0-40); Albumin Level 4.2 g/dL (3.5-5.0); Alkaline Phosphatase 75 U/L (39-117); Anion Gap 8 (12-20); Aspartate Amino Transferase 21 U/L (5-37); Bilirubin Total 0.6 mg/dL (0.0-1.0); Blood Urea Nitrogen 10 mg/dL (9-16); Calcium 9.5 mg/dL (8.4-10.2); Carbon Dioxide 29 mmol/L (22-29); Chloride 107 mmol/L (96-108); Creatinine Clr Calc Pharmacy 75.8; Estimated Glomerular Filt Rate > 60; Glucose Random 105 mg/dL (60-115); Lipase 8 U/L (8-78); Sodium 140 mmol/L (135-145); Total Protein 7.1 g/dL (6.5-8.0)
[2025-03-07 16:33] LABS: Troponin-I High Sensitivity 2.8 ng/L (<3.5-35.0)
[2025-03-07 16:34] LABS: B Type Natriuretic Peptide 54 pg/mL (<100)
[2025-03-07 16:47] LABS: TSH reflex Free T4 0.69 uIU/mL (0.32-4.0)
[2025-03-07 16:50] LABS: Influenza A PCR NEGATIVE (Negative); Influenza B PCR NEGATIVE (Negative); Resp Syncy Virus RNA Qual PCR NEGATIVE (Negative); SARS COV2 PCR INHOUSE NEGATIVE (Negative)
[2025-03-07 18:25] VITALS: BP 134/74; PULSE 60; RESP 17; TEMP 36.4; O2SAT 99
== END 2025-03-07 18:30 | disposition home or self-care (01) ==
PROVIDERS: Nurse Practitioner Family; Physician Assistant; Emergency Provider Emergency Medicine; PCP Internal Medicine
DX: R06.02 Shortness of breath (principal); R00.2 Palpitations; F41.9 Anxiety disorder, unspecified; K59.00 Constipation, unspecified; R07.89 Other chest pain; R00.1 Bradycardia, unspecified; F17.210 Nicotine dependence, cigarettes, uncomplicated; Z03.818 Encounter for observation for suspected exposure to other biological agents ruled out; Z79.899 Other long term (current) drug therapy
CPT/HCPCS: 0241U; 36415; 71046; 71250; 80053; 83690; 83880; 84443; 84484; 85025; 93005; 99284

== ENCOUNTER → 2025-03-07 14:42 | Outpatient (BNV) | payer MEDICARE, SELFPAY | PROVIDERS: Emergency Provider Emergency Medicine; PCP Internal Medicine; Visit Provider Radiology Diagnostic Radiology | DX: R00.2 Palpitations (principal); R06.02 Shortness of breath; R91.1 Solitary pulmonary nodule | CPT/HCPCS: 71046; 71250 ==

== ENCOUNTER → 2025-03-07 14:42 | Outpatient (BNV) | payer MEDICARE, SELFPAY | PROVIDERS: Emergency Provider Emergency Medicine; PCP Internal Medicine; Visit Provider Internal Medicine | DX: R00.1 Bradycardia, unspecified (principal) | CPT/HCPCS: 93010 ==